=== PATIENT | female | born 1990 | race Caucasian/White ===

== ENCOUNTER 2017-01-05 18:33 | Inpatient (IN) | payer MEDICAID ==
[~2017-01-05] VITALS: Ht 165.1 cm; Wt 94.3 kg
[~2017-01-05 18:33] MED LIST: EFFEXOR-XR150 MG PO; FOLATE1 MG PO; MOTRIN400 MG PO; PRENATAL VITAMI1 T10 PO; TYLENOL650 MG RC; VITAMIN B12100 MC1 PO; VITAMIN C500 M8 PO
[2017-01-05 18:36] VITALS: BP 130/94
--- NOTE | 2017-01-05 20:09 | NUR ---
PT TAKEN TO XRAY
--- NOTE | 2017-01-05 20:23 | NUR ---
PT RETURN FROM XRAY
--- NOTE | 2017-01-05 21:07 | NUR ---
PT TAKEN TO BED 6
--- NOTE | 2017-01-05 21:10 | NUR ---
Dr. Arthur evaluating patient at bedside.
[2017-01-05] MEDS ORDERED: NACL 0.9% 1,000 ML IV ONE (21:25)
[2017-01-05] MEDS ORDERED: ONDANSETRON 4 MG/2 ML VIAL IVP ONE (21:25)
[2017-01-05] MEDS ORDERED: LORazepam 2 MG/ML VIAL IVP ONE (21:25)
--- NOTE | 2017-01-05 21:45 | NUR ---
26Y/F PATIENT PRESENTS TO ED WITH C/O CHEST PAIN SINCE 3AM LAST NIGYT. AAO X4, AMBULATORY WITH STEADY GAIT; LUNGS CLEAR BL; HR EVEN AND REGULAR; PT DENIES ANY FEVER, SOB, OR COUGH AT THIS TIME; C/O CHEST PAIN, PATIENT STATES PAIN OF 9/10 AT THIS TIME; VSS; PATIENT POSITIONED FOR COMFORT; HOB ELEVATED; BEDRAILS UP X2; BED DOWN. ER MD MADE AWARE OF PT STATUS.
--- NOTE | 2017-01-05 22:39 | NUR ---
Ultrasound at bedside.
[2017-01-05] MEDS ORDERED: MORPHINE SULFATE 2 MG/ML SYR IVP ONE (23:25)
[2017-01-05] MEDS ORDERED: ACETAMINOPHEN 325 MG TAB PO PRN (23:40)
[2017-01-05] MEDS ORDERED: DOCUSATE SODIUM 100 MG GELCAP PO PRN (23:40)
[2017-01-05] MEDS ORDERED: MORPHINE SULFATE 2 MG/ML SYR IVP PRN (23:40)
[2017-01-05] MEDS ORDERED: CHLORHEXADINE GLUC 2% CLOTH TP SCH (23:45)
[2017-01-05] MEDS ORDERED: KETOROLAC 30 MG/ML VIAL IVP ONE (23:50)
[2017-01-06 00:05] VITALS: BP 106/57
--- NOTE | 2017-01-06 00:05 | NUR ---
ADMITTED A 26F FROM ER. CAME BY WHEELCHAIR DUE TO ABDOMINAL /EPIGASTRIC PAIN SINCE YESTERDAY. STARTED FEW DAYS A GO BUT THE WORST PAIN WAS YESTERDAY. AWAKE,ALERT AND ORIENTED X4. MED SURG PT. WITH HL ON THE RT AC #20. CLEAR AND PATENT. SKIN INTACT. AMBULATORY. SHE SAID SHE HAS HX: OF CHRONIC PAIN . PLAN OF CARE DISCUSSED AND VERBALIZED UNDERSTANDING. ORIENTED TO HOSPITAL ROUTINES. CALL LIGHT PLACED WITHIN EASY REACH. WILL FOLLOW UP ADMIT ORDERS.
--- NOTE | 2017-01-06 00:05 | NUR ---
Patient will be admitted to care of [facility]. Admited to MED-SURG. Will go to room 108B. Belongings list completed. Report to ERICKSON LIN.
--- NOTE | 2017-01-06 00:10 | NUR ---
TALKED TO TO CONFIRM STATUS OF ADMISSION.HE SAID IT IS OK TO ADMIT MED-SURGE.SO ADMITTED PT MED-SURG PT.NEEDS ORDER.
--- NOTE | 2017-01-06 00:20 | NUR ---
INSTRUCTED PT THE NPO EXCEPT MEDS DIET ORDER. VERBALIZED UNDERSTANDING.
[2017-01-06] MEDS ORDERED: XANAX2 M1 PO (01:15)
--- NOTE | 2017-01-06 01:30 | NUR ---
APPLIED TO BLE SCD MACHINE. PT AWARE OF BENEFITS FROM THE MACHINE.
--- NOTE | 2017-01-06 02:12 | NUR ---
PAGED DR. AJ,CALLED BACK . MADE AWARE THE NEED FOR MRSA NARES ORDER .
[2017-01-06] MEDS: NACL 0.9% 1,000 ML IV SCH ×2 (03:47→21:38)
--- NOTE | 2017-01-06 06:30 | NUR ---
ABLE TO SLEEP DURING THE NIGHT. NO C/O ANY PAIN NOTED.
--- NOTE | 2017-01-06 07:35 | NUR ---
ENDORSED PT IN STABLE CONDITION TO AM NURSE.
--- NOTE | 2017-01-06 07:36 | NUR ---
RECEIVED SBAR REPORT AT PT BEDSIDE FROM NIGHT RN. PT RESTING IN BED. AAOX4. NO S/S OF ACUTE DISTRESS. C/O ABDOMINAL PAIN, WILL MEDICATE ORDERED. IV SITE PATENT AND INTACT. CALL LIGHT WITHIN REACH. BED IN LOWEST POSITION.
[2017-01-06 08:00] VITALS: BP_SYST 101; BP_SYST 149; BP_DIAS 59; BP_DIAS 89
[2017-01-06] MEDS: HYDROcodone/APAP 5/325 MG 1 TAB TAB PO PRN ×3 (08:46→20:59)
[2017-01-06] MEDS: ALPRAZolam 0.5 MG TAB PO PRN ×2 (08:47→20:59)
[2017-01-06] MEDS: FOLIC ACID 1 MG TAB PO SCH (08:50)
--- NOTE | 2017-01-06 08:55 | NUR ---
ROUNDED WITH PATIENT. PATIENT TO HAVE ERCP.
[2017-01-06] MEDS ORDERED: MUPIROCIN 2% OINT 22 GM TUBE TP SCH (09:00)
[2017-01-06] MEDS ORDERED: CHLORHEXADINE GLUC 2% CLOTH TP SCH ×2 (09:00)
[2017-01-06] MEDS ORDERED: VENLAFAXINE XR 75 MG CAPER PO SCH (09:00)
--- NOTE | 2017-01-06 09:10 | NUR ---
PATIENT HAS BEEN SCREENED AND CATEGORIZED MODERATE NUTRITION RISK. PATIENT WILL BE SEEN WITHIN 3-5 DAYS OF ADMISSION. 01/08/17-01/10/[address]
[2017-01-06] MEDS: HYDROmorphone 1 MG/ML AMP IVP PRN ×3 (11:39→23:09)
--- NOTE | 2017-01-06 12:28 | NUR ---
CM NOTE INITIAL REVIEW SENT TO [facility] [place] FAX# [phone] PH# [phone]
--- NOTE | 2017-01-06 14:00 | NUR ---
PT RESTING IN BED. NO S/S OF ACUTE DISTRESS. ALL NEEDS MET.
[2017-01-06 16:00] VITALS: BP 109/71
--- NOTE | 2017-01-06 17:40 | NUR ---
PT C/O PAIN WITHOUT RELIEF FROM PO MEDS. PT MEDICATED ORDERED. WILL CONTINUE TO MONITOR. NO S/S OF ACUTE DISTRESS.
--- NOTE | 2017-01-06 18:55 | NUR ---
PATIENT BEING SEEN BY DR. VÁSQUEZ AT PT BEDSIDE.
--- NOTE | 2017-01-06 19:10 | NUR ---
ENDORSED PLAN OF CARE TO NIGHT RN MODESTA AT PT BEDSIDE. PT RESTING IN BED. NO S/S OF ACUTE DISTRESS.
--- NOTE | 2017-01-06 19:15 | NUR ---
RECEIVED PT FROM LESIA ROBERTS RN PT IS AAOX4 AMBULATORY WITH DX ACUTE CHOLECYSTITIS DR VÁSQUEZ IS HERE AND SEE THE PT, NOT DISTRESS AT THIS TIME INITIAL ASSESSMENT DONE
[2017-01-06 20:00] VITALS: BP 110/64
--- NOTE | 2017-01-06 21:20 | NUR ---
DR ESPINO IS HERE AND SEE THE PT AND ORDER TO FOLLOW. PT WILL HAVE ERCP IN AM
--- NOTE | 2017-01-07 00:17 | NUR ---
AFTER PAIN MEDIC GIVEN PT SLEEP QUITE, NOT DISTRESS NOTED
[2017-01-07 04:00] VITALS: BP 144/57
--- NOTE | 2017-01-07 04:00 | NUR ---
PT SLEEPING WELL DENIES ANY PAIN AT THIS TIME IV ON RT AC INFUSING WELL
[2017-01-07] MEDS: HYDROmorphone 1 MG/ML AMP IVP PRN ×4 (04:56→22:02)
--- NOTE | 2017-01-07 06:00 | NUR ---
AFTER PAIN MEDIC GIVEN PT SLEEPING WELL NOT DISTRESS NOTED WAITIG TO PICK HER UP FOR ERCP CONSENT READY TICKET TO RIDE AND SURGICAL CHECK LIST READY
--- NOTE | 2017-01-07 07:30 | NUR ---
PATIENT TAKEN OFF FLOOR FOR ERCP PROCEDURE. NO S/S OF ACUTE DISTRESS NOTED.
[2017-01-07] MEDS ORDERED: fentaNYL 0.05 MG/ML VIAL ONE (07:41)
[2017-01-07] MEDS ORDERED: MIDAZOLAM 2 MG/2 ML VIAL ONE (07:41)
[2017-01-07] MEDS ORDERED: GLUCAGON 1 MG VIAL ONE (07:42)
[2017-01-07] MEDS ORDERED: ONDANSETRON 4 MG/2 ML VIAL ONE (07:42)
[2017-01-07] MEDS ORDERED: PROPOFOL 200 MG/20 ML VIAL IV ONE (07:42)
[2017-01-07] MEDS ORDERED: KETOROLAC 30 MG/ML VIAL IVP PRN (08:40)
[2017-01-07 09:00] VITALS: BP 109/68
[2017-01-07] MEDS: FOLIC ACID 1 MG TAB PO SCH (09:00)
--- NOTE | 2017-01-07 09:00 | NUR ---
PATIENT RETURNED FROM ERCP PROCEDURE. NO S/S OF ACUTE DISTRESS. VITAL SIGNS STABLE. C/O PAIN, DR. PLASENCIA MADE AWARE OF ADJUSTMENT OF ORDERS. WILL MEDICATE ORDERED.
--- NOTE | 2017-01-07 09:05 | NUR ---
SPOKE WITH DR. VÁSQUEZ REGARDING PATIENT RETURN FROM ERCP AND PROCEDURE. PATIENT TO BE GIVEN FOOD AND NPO MIDNIGHT FOR PROCEDURE TOMORROW.
[2017-01-07] MEDS: NACL 0.9% 1,000 ML IV SCH ×2 (09:48→18:23)
[2017-01-07] MEDS: ALPRAZolam 0.5 MG TAB PO PRN ×2 (09:56→20:53)
[2017-01-07] MEDS: VENLAFAXINE XR 75 MG CAPER PO SCH ×2 (10:21→20:45)
--- NOTE | 2017-01-07 10:21 | NUR ---
CM NOTE CONCURRENT REVIEW SENT TO [facility] [place] FAX# [phone] PH# [phone]. INITIAL AND CONCURRENT REVIEW SENT TO [facility] FAX# [phone] PH# [phone] TRACKING# [id number]
--- NOTE | 2017-01-07 12:20 | NUR ---
PT ATE FOOD FROM HOME. BOYFRIEND AT BEDSIDE. PT MADE AWARE OF UPCOMING PROCEDURES AND TESTS. PT TOLERATED LUNCH, DENIES NAUSEA. NO S/S OF ACUTE DISTRESS.
[2017-01-07] MEDS: HYDROcodone/APAP 5/325 MG 1 TAB TAB PO PRN ×2 (13:11→18:13)
--- NOTE | 2017-01-07 14:50 | NUR ---
PT RESTING IN BED. NO S/S OF ACUTE DISTRESS. WILL CONTINUE TO MONITOR.
[2017-01-07 16:00] VITALS: BP 128/70
--- NOTE | 2017-01-07 16:10 | NUR ---
PT C/O ABDOMINAL DISCOMFORT. MEDICATED ORDERED. NO S/S OF ACUTE DISTRESS NOTED.
--- NOTE | 2017-01-07 19:18 | NUR ---
SBAR REPORT GIVEN TO DONNIE HALE AT PT BEDSIDE. NO S/S OF ACUTE DISTRESS. ALL NEEDS MET DURING SHIFT.
--- NOTE | 2017-01-07 19:19 | NUR ---
PATIENT IS CURRENTLY SITTING UP IN BED AWAKE ALERT ORIENTED PATIENT DENIES PAIN AT THIS TIME ,SHE IS CURRENTLY WATCHING TV,NEEDS MET.CALL LIGHT WITHIN REACH WILL CONTINUE TO MONITOR.
--- NOTE | 2017-01-07 20:00 | NUR ---
Patient's Plan of Care was discussed and reviewed with CONTINUOUS IMPROVEMENT COACH: GEOFFREY CHANCE
[2017-01-07 20:15] VITALS: BP 124/86
--- NOTE | 2017-01-07 20:45 | NUR ---
EDUCATION GIVEN ON HER ROUTINE MEDICATION GIVEN MANDO.PATIENT VERBALIZES UNDERSTANDING AND TOOK HER MEDICATION.
[2017-01-07] MEDS ORDERED: VENLAFAXINE XR 75 MG CAPER PO SCH (21:00)
--- NOTE | 2017-01-07 23:15 | NUR ---
PATIENT IS CURRENTLY SLEEPING IN BED ON AND OFF WATCHING TV I ASKED HER IF SHE IS DOING GOOD. PATIENT SAID SHE IS OK RIGHT NOW.
--- NOTE | 2017-01-08 00:25 | NUR ---
PATIENT IS CURRENTLY RESTING IN BED.CALL LIGHT WITHIN REACH.
--- NOTE | 2017-01-08 02:37 | NUR ---
PATIENT IS CURRENTLY SLEEPING.IVF INFUSING WELL IV SITE PATENT.NO PAIN OR DISCOMFORT NOTED WILL CONTINUE TO MONITOR.
[2017-01-08] MEDS: HYDROcodone/APAP 5/325 MG 1 TAB TAB PO PRN ×3 (02:58→17:48)
[2017-01-08] MEDS: NACL 0.9% 1,000 ML IV SCH (02:58)
--- NOTE | 2017-01-08 04:46 | NUR ---
PATIENT IS CURRENTLY RESTING IN BED IVF INFUSING WELL IV SITE PATENT
[2017-01-08] MEDS: HYDROmorphone 1 MG/ML AMP IVP PRN ×2 (05:09→16:15)
[2017-01-08 05:35] VITALS: BP 100/56
--- NOTE | 2017-01-08 06:31 | NUR ---
PATIENT IS CURRENTLY STABLE RESTING IN BED WILL CONTINUE TO MONITOR.
--- NOTE | 2017-01-08 06:40 | NUR ---
PATIENT IS AWARE THAT SHE WILL GO FOR PROCEDURE AT 0830 THIS MORNING AND CONTINUES TO BE NPO.
--- NOTE | 2017-01-08 07:30 | NUR ---
PATIENT STABLE REPORT ENDORSED AT BEDSIDE TO RN OSMELN.
--- NOTE | 2017-01-08 07:35 | NUR ---
RECEIVED SBAR REPORT, PATIENT NPO FOR PROCEDURE TODAY.
[2017-01-08 08:00] VITALS: BP 118/67
[2017-01-08] MEDS ORDERED: BUPIVACAINE-MPF/EPI 0.5% 30 ML VIAL INJ ONE (08:10)
[2017-01-08] MEDS ORDERED: ONDANSETRON 4 MG/2 ML VIAL IVP ONE (08:20)
[2017-01-08] MEDS ORDERED: DESFLURANE 240 ML BTL INH ONE (08:20)
[2017-01-08] MEDS ORDERED: GLYCOPYRROLATE 0.2 MG/ML VIAL IV ONE (08:20)
[2017-01-08] MEDS ORDERED: DEXAMETHASONE 4 MG/ML VIAL IVP ONE (08:20)
[2017-01-08] MEDS ORDERED: NEOSTIGMINE 1:1000 10 MG/10 ML VIAL IM ONE (08:20)
[2017-01-08] MEDS ORDERED: SUCCINYLCHOLINE CHLORIDE 200 MG/10 ML VIAL IV ONE (08:20)
[2017-01-08] MEDS ORDERED: KETOROLAC 60 MG/2 ML VIAL IM ONE (08:20)
[2017-01-08] MEDS ORDERED: ROCURONIUM 50 MG/5 ML VIAL IV ONE (08:20)
[2017-01-08] MEDS ORDERED: PROPOFOL 200 MG/20 ML VIAL IV ONE (08:20)
--- NOTE | 2017-01-08 08:30 | NUR ---
PATIENT WHEELED TO SURGERY IN A STABLE CONDITION ACCOMAPNIED BY OR, RN
[2017-01-08] MEDS ORDERED: ceFAZolin 1,000 MG VIAL ONE (08:42)
[2017-01-08] MEDS ORDERED: LEVOFLOXACIN 500 MG/D5W PREMIX 100 ML IV ONE (08:45)
[2017-01-08] MEDS ORDERED: MIDAZOLAM 2 MG/2 ML VIAL ONE (08:53)
[2017-01-08] MEDS ORDERED: fentaNYL 0.05 MG/ML VIAL ONE (08:53)
[2017-01-08] MEDS ORDERED: MEPERIDINE 50 MG/ML SYR ONE (08:53)
[2017-01-08] MEDS: FOLIC ACID 1 MG TAB PO SCH (09:00)
[2017-01-08] MEDS ORDERED: METOCLOPRAMIDE 10 MG/2 ML INJ VIAL IVP PRN (09:45)
[2017-01-08] MEDS ORDERED: MIDAZOLAM 2 MG/2 ML VIAL IVP ONE (09:45)
[2017-01-08] MEDS ORDERED: MEPERIDINE 25 MG/ML SYR IVP PRN ×2 (09:45)
[2017-01-08] MEDS ORDERED: MEPERIDINE 25 MG/ML SYR ONE (11:05)
[2017-01-08 11:30] VITALS: BP 116/80
--- NOTE | 2017-01-08 11:30 | NUR ---
PATIENT BACK FROM SURGERY, VITAL SIGN STABLE. INCENTIVE SPIROMETER GIVEN AND INSTRUCTION WELL, PATIENT VERBALIZED UNDERSTANDING AND DID RETURN DEMONSTRATION.
[2017-01-08 13:01] VITALS: BP 118/66
[2017-01-08] MEDS: DEXT 5% / NACL 0.45% 1,000 ML IV SCH ×3 (13:12→23:36)
--- NOTE | 2017-01-08 15:50 | NUR ---
PATIENT AMBULATED TO THE HALLWAY WITH RN, TOLERATED WELL.
[2017-01-08 16:00] VITALS: BP 123/66
[2017-01-08] MEDS ORDERED: MAGNESIUM OXIDE 400 MG TAB PO SCH (16:30)
--- NOTE | 2017-01-08 17:30 | NUR ---
PATIENT AMBULATED TO THE BATHROOM WITH RN, TOLERATED.
--- NOTE | 2017-01-08 18:38 | NUR ---
PATIENT TOLERATING CLEAR LIQUID, DENIES ANY NAUSEA/VOMITING.
--- NOTE | 2017-01-08 19:10 | NUR ---
PATIENT IS CURRENTLY RESTING IN BED DENIES PAIN AT THIS TIME,SURGICAL INCISIONS TO ABD X4 CURRENTLY CLEAN AND DRY AND INTACT.IVF INFUSING WELL IV SITE PATIENT.PATIENT NEEDS CONTINUE TO BE MET.PATIENT ABLE TO VERBALIZE NEEDS.
--- NOTE | 2017-01-08 19:39 | NUR ---
Patient's Plan of Care was discussed and reviewed with TUBE LASER OPERATOR: JESSE
--- NOTE | 2017-01-08 19:57 | NUR ---
I MADE ROUNDS PATIENT WANTS TO USE THE BEDPAN.I EDUCATED THE PATIENT ON THE IMPORTANCE TO AMBULATE AND KAM GIO AND MYSELF OFFERED OUR HELP I EXPLAINED THAT SHE CAN TAKE HER TIME TO AMBULATE TO THE BATHROOM.PATIENT REFUSED TO AMBULATE TO THE BATHROOM AND CONTINUES TO INSIST AND STATES,"I WANT TO USE THE BEDPAN." PATIENT WAS GIVEN THE BEDPAN FOR NOW. PATIENT IS ALSO ASKING FOR PAIN MEDICATION PT STATES,"MY PAIN IS SEVERE."PATIENT DEMANDS THAT I CALL THE MD AND TRY TO GET MORE PAIN MEDICATION FOR HER PAIN. I EXPLAINED TO THE PATIENT THAT SHE HAS PAIN MEDICATION ORDERED ALREADY FOR HER PAIN AND ITS NOT TIME YET FOR EITHER NORCO OR DILAUDID PATIENT STATES,"I KNOW BUT I NEED MORE PAIN MEDICATION NOW." WILL WEI MARTINEZ.
[2017-01-08 20:09] VITALS: BP 124/74
--- NOTE | 2017-01-08 20:15 | NUR ---
CALLED BACK AND WAS INFORMED PATIENT IS HAVING SEVERE PAIN AND ITS NOT TIME FOR EITHER ADRIAN OR GAY MARTINEZ SAID HE WILL PUT ORDERS IN.
[2017-01-08] MEDS: VENLAFAXINE XR 75 MG CAPER PO SCH (20:44)
[2017-01-08] MEDS: ALPRAZolam 0.5 MG TAB PO PRN (20:44)
--- NOTE | 2017-01-08 20:54 | NUR ---
ORDERS FOR PAIN MEDS STILL NOT ENTERED YET WILL PAGE MD AGAIN.
--- NOTE | 2017-01-08 21:01 | NUR ---
MD HOFFMAN CALLED BACK AND I INFORMED HIM THAT I STILL HAVE NO ORDER FOR PATIENT PAIN MED HE SAID HE WOULD ORDER. SAID HE WILL ORDER.
--- NOTE | 2017-01-08 21:38 | NUR ---
ORDER FOR PAIN MEDS IN I CALLED PHARMACY TO VERIFY THE MEDS PATIENT NEEDS HER PAIN MEDICATION.
[2017-01-08] MEDS: MORPHINE SULFATE 2 MG/ML SYR IVP PRN (21:48)
--- NOTE | 2017-01-08 21:48 | NUR ---
PATIENT MEDICATED BY ERICKSON COLE FOR PAIN WITH MORPHINE IV.
--- NOTE | 2017-01-08 22:50 | NUR ---
PATIENT WAS ABLE TO WALK TO THE BATHROOM WELL. KAM POWERS AND MYSELF CHANGED HER COMPLETE BED AND BED LINEN AND ASSISTED THE PATIENT BACK TO BED.IVF INFUSING WELL IV SITE PATENT.WILL CONTINUE TO MONITOR.CALL LIGHT WITHIN REACH.
[2017-01-09] VITALS: BP 114/83
--- NOTE | 2017-01-09 00:16 | NUR ---
PATIENT COMPLAINING OF PAIN TO IV SITE IV SITE WAS FLUSHED SOME RESISTANCE NOTED AND PATIENT COMPLAINS OF PAIN.IV WAS DISCONTINUED AND A NEW IV ACCESS TO RT HAND G#22 WAS OBTAINED.PATIENT TOLERATED ACTIVITY WELL WILL CONTINUE TO MONITOR.IVF INFUSING WELL.
[2017-01-09] MEDS: HYDROcodone/APAP 5/325 MG 1 TAB TAB PO PRN (00:33)
--- NOTE | 2017-01-09 03:10 | NUR ---
PATIENT IS CURRENTLY SLEEPING IN BED,IVF INFUSING WELL IV SITE PATENT WILL CONTINUE TO MONITOR.
[2017-01-09] MEDS: MORPHINE SULFATE 2 MG/ML SYR IVP PRN (05:58)
--- NOTE | 2017-01-09 06:05 | NUR ---
PATIENT COMPLAINS OF PAIN AND ERICKSON COLE WENT TO MEDICATE THE PATIENT AND SHE REFUSED THE MORPHINE.MD CALLED AND LEFT A MESSAGE WILL WAIT FOR A CALL BACK.
--- NOTE | 2017-01-09 06:34 | NUR ---
NO CALL BACK YET SECOND ATTEMPT MD WAS CALLED AND LEFT A MESSAGE.WILL WAIT FOR A CALL BACK.
--- NOTE | 2017-01-09 06:56 | NUR ---
MD ANAYA INFORMED THIS MORNING THAT PATIENT REFUSED HER MORPHINE AND IS DEMANDING TO HAVE DILAUDID AND I OFFERED THEM MORPHINE AGAIN AND SHE REFUSED IT.MD ANAYA SAID HE WILL COME AND TALK TO HER AND HE WILL MAKE ROUNDS SHORTLY.
--- NOTE | 2017-01-09 07:09 | NUR ---
MD ANAYA IS HERE MAKING ROUNDS SAID HE WILL COME AND TALK TO THE PATIENT.
--- NOTE | 2017-01-09 07:25 | NUR ---
RECEIVED PT IN BED. AWAKE, ALERT ORIENTEDX4. NO SOB. NO ACUTE SIGNS AND SYMPTOMS OF DISTRESS NOTED. ABDOMINAL INCISION NOTED, OPEN TO AIR. ENCOURAGE PT TO AMBULATE. PT VERBALIZED SHE AMBULATES. SAFETY PRECAUTION IN PLACE. CALL LIGHT WITHIN REACH.
[2017-01-09 08:00] VITALS: BP 118/74
--- NOTE | 2017-01-09 08:45 | NUR ---
PT COMPLAINING OF SEVERE PAIN BUT DOES NOT WANT TO TAKE MORPHINE PRN AND JUST WANT TO SPEAK WITH THE DOCTOR. DR ANAYA CAME TO SEE PT WITH ORDERS MADE AND CARRIED OUT.
[2017-01-09] MEDS ORDERED: HYDROmorphone 1 MG/ML AMP IVP PRN ×2 (09:15→20:00)
[2017-01-09] MEDS ORDERED: HYDROcodone/APAP 10/325 MG 1 TAB TAB PO PRN (09:15)
[2017-01-09] MEDS: FOLIC ACID 1 MG TAB PO SCH (09:39)
--- NOTE | 2017-01-09 11:21 | NUR ---
ABDOMINAL SURGICAL SITE ASSESSMENT DONE. NO ACTIVE BLEEDING OR DISCHARGE NOTED. DARK REDISH TO BROWN SCAB NOTED ON SURGICAL SITE AREA NOTED. KEPT CLEAN, AND DRY, OPEN TO AIR. PT AMBULATED GOING TO THE BATHROOM WITH MINIMAL TO NO ASSISTANCE.
[2017-01-09] MEDS: ONDANSETRON 4 MG/2 ML VIAL IVP PRN ×2 (11:52→16:46)
[2017-01-09 12:00] VITALS: BP 127/78
[2017-01-09] MEDS: DEXT 5% / NACL 0.45% 1,000 ML IV SCH (14:45)
[2017-01-09 16:00] VITALS: BP 130/70
--- NOTE | 2017-01-09 16:20 | NUR ---
PT VERBALIZED SHE IN IN PAIN OF 10/10 AND WOULD WANT TO RECEIVE DILAUDID. PAIN ASSESSMENT DONE, NO FACIAL GRIMACE NOTED, GUARDING OF ABDOMINAL SITE NOTED. DR. ANAYA MADE AWARE WITH ORDERS MADE AND CARRIED OUT.
[2017-01-09] MEDS: oxyCODONE/APAP 5/325 MG 1 TAB TAB PO PRN ×2 (16:28→23:58)
--- NOTE | 2017-01-09 17:00 | NUR ---
ENCOURAGED PT TO AMBULATE. PT AMBULATED GOING TO THE BATHROOM. PT BURPED AND PASSED GAS VERBALIZED BY PT.
--- NOTE | 2017-01-09 18:00 | NUR ---
PT COMPLAINED OF PAIN OF ABDOMEN. BUT VERBALIZED THAT PREVIOUSLY GIVEN PERCOCET HELPING HER BUT NOT ENOUGH. AND PT WANTS TO HAVE DILAUDID. ASSESSED PT. DR. ANAYA MADE AWARE WITH ORDERS MADE AND CARRIED OUT. PT MADE AWARE THAT SHE WILL GET HER DILAUDID AT 2000 PER MD ORDER.
--- NOTE | 2017-01-09 19:30 | NUR ---
PT KEPT CLEAN, DRY AND COMFORTABLE, NEEDS ATTENDED. ENDORSED TO NEXT SHIFT FOR CONTINUITY OF CARE. NO SOB NOTED. FUEL TRUCK DRIVER NURSE MADE AWARE OF DILAUDID X1 ORDER AT 1999. PT VERBALIZED UNDERSTANDING OF DILAUDID ORDER. PT ON STABLE CONDITION.
--- NOTE | 2017-01-09 19:35 | NUR ---
PATIENT IS RESTING COMFORTABLY IN BED DENIES PAIN AT THIS TIME,IVF INFUSING WELL IV SITE PATENT.ABDOMINAL INCISION TO ABDOMEN X4 DRY AND INTACT.PATIENT VERBALIZES FEELING ANXIETY BECAUSE SHE HASN'T SEEN HER DOG.PATIENT NEEDS MET.ENCOURAGED TO CONTINUE TO AMBULATE.PATIENT ENCOURAGED TO DO BREATHING EXERCISES.PATIENT VERBALIZES UNDERSTANDING.CALL LIGHT WITHIN REACH.
[2017-01-09 20:00] VITALS: BP 116/71
[2017-01-09 20:07] VITALS: BP 113/77
[2017-01-09] MEDS: VENLAFAXINE XR 75 MG CAPER PO SCH (21:38)
[2017-01-09] MEDS: ALPRAZolam 0.5 MG TAB PO PRN (21:39)
--- NOTE | 2017-01-09 22:10 | NUR ---
Patient's Plan of Care was discussed and reviewed with RATING CLERK: GEOFFREY CHANCE
--- NOTE | 2017-01-09 23:16 | NUR ---
MD HOFFMAN CALL BACK AND I INFORMED HIM THAT PATIENT HAS BEEN TOLERATING FULL LIQUID DIET AND INFORMED HIM THAT PATIENT WANTS TO EAT PUDDING SO I ASKED MD IF PATIENT CAN HAVE REGULAR DIET HE SAID OK.I ALSO ASKED IF SHE CAN HAVE HER IVF CHANGED TO SALINE LOCK PATIENT IS NOT GETTING ANTIBIOTICS AND IS DRINKING PLENTY OF FLUIDS. SAID YES. MD HOFFMAN SAID HE WILL PUT THE ORDERS.
--- NOTE | 2017-01-09 23:20 | NUR ---
PATIENT WAS GIVEN A CHOCOLATE PUDDING AND CONTINUES TO DRINK PLENTY OF WATER AND AMBULATES.
--- NOTE | 2017-01-10 01:03 | NUR ---
PATIENT SLEEPING COMFORTABLY IN BED IN NO DISTRESS WILL CONTINUE TO MONITOR.
[2017-01-10] MEDS: DEXT 5% / NACL 0.45% 1,000 ML IV SCH ×2 (02:25→12:25)
--- NOTE | 2017-01-10 02:25 | NUR ---
IVF BAG NOT HUNG ORDERED FOR THE PATIENT SALINE LOCK.
--- NOTE | 2017-01-10 03:30 | NUR ---
PATIENT SLEEPING IN BED NO PAIN OR DISCOMFORT.WILL CONTINUE TO MONITOR.
[2017-01-10] MEDS ORDERED: MAG SULF 2000 MG/WATER PREMIX 50 ML IV ONE (07:00)
--- NOTE | 2017-01-10 07:33 | NUR ---
PATIENT STABLE SLEEPING REPORT ENDORSED TO ERICKSON HERNANDEZ.
--- NOTE | 2017-01-10 07:34 | NUR ---
RECEIVED CARE OF PT FROM INFORMATICA MDM ARCHITECT NURSE AT BEDSIDE. PT IS ALERT AWAKE AND ORIENTED. VS WNL. PT HAS R HAND IV 22 G SL. PT C/O PAIN, WILL CHECK EMAR AND ADMINISTER PAIN MED. INTRODUCED OURSELVES AND UPDATED THE BOARD. EXPLAINED TO PT PLAN OF CARE FOR TODAY. WILL HANG MAG RIDER DUE TO MG LEVEL OF 1.7. PT HAS 4 ABD INCISION S/P [place], DRESSING INTACT. PT HAS NOT HAD BM SINCE [place], PT IS PASSING GAS AND WALKING OK. CALL LIGHT WITHIN REACH. WILL CONTINUE TO MONITOR.
[2017-01-10 08:00] VITALS: BP 118/69
[2017-01-10] MEDS: FOLIC ACID 1 MG TAB PO SCH (09:02)
[2017-01-10] MEDS: oxyCODONE/APAP 5/325 MG 1 TAB TAB PO PRN ×2 (09:03→13:05)
--- NOTE | 2017-01-10 09:05 | NUR ---
ADMINISTERED MORNING MED AND PERCOCET FOR PAIN. PT TOLERATED WELL. WILL CONTINUE TO MONITOR.
--- NOTE | 2017-01-10 10:19 | NUR ---
CM NOTE CONCURRENT REVIEW SENT TO [employer] FAX# [phone] PH# [phone] AND TO [facility] FAX# [phone] PH# [phone] TRACKING# [id number]
--- NOTE | 2017-01-10 10:55 | NUR ---
PT SAT UP AND ATE BREAKFAST IN BED. NO DISTRESS NOTED. CALL LIGHT WITHIN REACH. WILL CONTINUE TO MONITOR.
--- NOTE | 2017-01-10 11:10 | NUR ---
PT REQUESTED TO SPEAK TO REGARDING PAIN MANAGEMENT. WILL COMMUNICATE WITH
--- NOTE | 2017-01-10 11:15 | NUR ---
SPOKE TO ABOUT PT'S REQUEST FOR DISCUSSION ON PAIN MANAGEMENT. STATED HE WILL ORDER A MUSCLE RELAXANT AND ASK PT TO AMBULATE.
[2017-01-10] MEDS ORDERED: METHOCARBAMOL 500 MG TAB PO PRN (12:05)
--- NOTE | 2017-01-10 13:00 | NUR ---
CLEANED PT'S SURGICAL WOUNDS WHICH HAD OLD BLOOD, NO NEW DRAINAGE, LEAVE SITES CONTRACTS SPECIALIST. PT TOLERATED WELL. TOOK PICTURE OF WOUNDS TO KEEP IN PT'S RECORD.
[2017-01-10] MEDS: ALPRAZolam 0.5 MG TAB PO PRN (13:05)
--- NOTE | 2017-01-10 14:00 | NUR ---
PT STATED SHE IS HAVING NUMBING AND TINGLING ON UPPER BACK AND NEEDED A MUSCLE RELAXANT. PT REFUSED THE METHOCARBAMOL THE DR PRESCRIBED, SHE STATED THE MEDICATION MAKES HER WEIRD. WILL TALK TO DR REGARDING PT'S REQUEST.
--- NOTE | 2017-01-10 14:05 | NUR ---
TALKED TO DR GONZALEZ REGARDING PT'S REQUEST FOR MUSCLE RELAXANT. STATED PT IS GOING HOME TODAY AND NEEDS TO F/U WITH PCP.
[2017-01-10 16:00] VITALS: BP 112/76
[2017-01-10] MEDS ORDERED: COLACE100 M1 PO (16:24)
[2017-01-10] MEDS ORDERED: ZOFRAN4 M1 PO (16:24)
[2017-01-10] MEDS ORDERED: METHOCARBAMOL500 M1 PO (16:24)
[2017-01-10] MEDS ORDERED: ACETAMINOPHEN-O1 TAB PO (16:24)
[2017-01-10] MEDS ORDERED: EFFEXOR-XR150 MG PO (16:24)
--- NOTE | 2017-01-10 16:48 | NUR ---
PT GIVEN DISCHARGE INSTRUCTION AT BEDSIDE. ANSWERED ALL QUESTIONS. PT VERBALIZED UNDERSTANDING. SIGNED APPROPRIATE PAPERWORK. REMOVED ALL ID BANDS. REMOVED IV, CANNULA INTACT. NO BLEEDING NOTED. PT WILL GET INTO HER PERSONAL CLOTHES, GATHER UP HER PERSONAL BELONGINGS. WILL WAIT FOR HER RIDE. PT WILL LET US KNOW WHEN HER SPOUSE GETS HERE SO WE CAN WHEEL CHAIR HER OUT. EDUCATED PT THE IMPORTANCE OF FOLLOWING UP WITH ER PCP AND SURGEON, IMPORTANCE OF DRINKING PLENTY OF WATER AND AMBULATING WHILE TAKING NARCOTICS FOR PAIN. PT VERBALIZED UNDERSTANDING.
--- NOTE | 2017-01-10 17:55 | NUR ---
DR. VÁSQUEZ CHECKED PT'S INCISION AT BEDSIDE. PT IN STABLE CONDITION. WILL CONTINUE TO MONITOR.
--- NOTE | 2017-01-10 19:25 | NUR ---
ENDORSED PT TO RAISE DRILL OPERATOR NURSE AT BEDSIDE. PT IN STABLE CONDITION. Addendum: 01/10/17 at 1940 by Anita Uriostegui RN WRONG PT
--- NOTE | 2017-01-10 19:40 | NUR ---
WHEELED PT OUT. PT IN STABLE CONDITION. AT HER SIDE.
[2017-01-31] MEDS ORDERED: PERCOCET 325 MG1 TA4 PO (08:10)
[2017-01-31] MEDS ORDERED: COLACE100 M1 PO (11:27)
== END 2017-01-10 18:40 | disposition home or self-care (01) | DRG 263 ==
LOC: MED 18:33 → MTU 23:41
PROVIDERS: ADMIT Family Medicine; ATTEND Family Medicine
PROC: 0FC98ZZ Extirpation of Matter from Common Bile Duct, Via Natural or Artificial Opening Endoscopic (ICD-10-PCS; 2017-01-07)
PROC: 0F7D8DZ Dilation of Pancreatic Duct with Intraluminal Device, Via Natural or Artificial Opening Endoscopic (ICD-10-PCS; principal; 2017-01-07 07:30)
PROC: 0FT44ZZ Resection of Gallbladder, Percutaneous Endoscopic Approach (ICD-10-PCS; 2017-01-08)
DX: K80.64 Calculus of gallbladder and bile duct with chronic cholecystitis without obstruction (principal); K85.90 Acute pancreatitis without necrosis or infection, unspecified; E83.42 Hypomagnesemia; E66.01 Morbid (severe) obesity due to excess calories; E78.5 Hyperlipidemia, unspecified; F41.9 Anxiety disorder, unspecified; F31.9 Bipolar disorder, unspecified; F41.0 Panic disorder [episodic paroxysmal anxiety]; R74.0 Nonspecific elevation of levels of transaminase and lactic acid dehydrogenase [LDH]; G89.4 Chronic pain syndrome; R03.0 Elevated blood-pressure reading, without diagnosis of hypertension; E80.6 Other disorders of bilirubin metabolism; Z68.34 Body mass index [BMI] 34.0-34.9, adult

== ENCOUNTER 2017-02-23 03:45 | Emergency (ER) | payer MEDICAID ==
[~2017-02-23] VITALS: Ht 165.1 cm; Wt 99.8 kg
[~2017-02-23 03:45] MED LIST changes: +ACET-3783 PO; +ACET-9494 PO; +ALPR2TAB1 PO; +DOCU-67 PO; -EFFEXOR-XR150 MG PO; -FOLATE1 MG PO; +FOLI1TAB19 PO; +METH500T18 PO; -MOTRIN400 MG PO; +ONDA4TAB PO; -PRENATAL VITAMI1 T10 PO; -TYLENOL650 MG RC; +VENL150C1 PO; -VITAMIN B12100 MC1 PO; -VITAMIN C500 M8 PO
[2017-02-23 03:50] VITALS: BP 114/72
--- NOTE | 2017-02-23 04:00 | NUR ---
TO ER BED 6
--- NOTE | 2017-02-23 04:06 | NUR ---
26Y/F PATIENT PRESENTS TO ED WITH C/O HEAD AND NECK PAIN X 1 DAY . PT STATES HEADPHONE DROPPED ON HER FEET, THEN HER HEAD AND NECK AND HER WHOLE BODY STARTED HURTING, NO FEVER, NO TRAUMA NOR INJURY . DENIES N/V/D; SKIN IS PINK/WARM/DRY; AAOX4 WITH EVEN AND STEADY GAIT; LUNGS CLEAR BL; HR EVEN AND REGULAR; PT DENIES ANY FEVER, CP, SOB, OR COUGH AT THIS TIME; PATIENT STATES PAIN OF 10/10 AT THIS TIME; VSS; PATIENT POSITIONED FOR COMFORT; HOB ELEVATED; BEDRAILS UP X2; BED DOWN. ER MD MADE AWARE OF PT STATUS.
--- NOTE | 2017-02-23 05:40 | NUR ---
PT APPEARS TO BE RESTING IN BED. NO SOB NOTED AT THIS TIME. WILL CONTINUE TO MONITOR.
[2017-02-23] MEDS ORDERED: KETOROLAC 60 MG/2 ML VIAL IM ONE (05:50)
[2017-02-23] MEDS ORDERED: cefTRIAXone 1,000 MG in LIDOCAINE 1% ED 2.1 ML IM ONE (05:50)
[2017-02-23 05:59] LABS: APPEARANCE,URINE CLEAR (CLEAR); BILIRUBIN,URINE NEGATIVE (NEGATIVE); BLOOD, URINE NEGATIVE (NEGATIVE); COLOR,URINE YELLOW (YELLOW); LEUKOCYTE ESTERASE ,URINE 2+ (NEGATIVE); NITRITE, URINE NEGATIVE (NEGATIVE); PROTEIN,URINE NEGATIVE (NEGATIVE); UGLUCOSE NEGATIVE (NEGATIVE); UROBILINOGEN,URINE 0.2 EU/dL (0.2 - 1)
[2017-02-23 06:03] LABS: AMPHETAMINE, URINE POS. ng/ml (NEG <=1000); BARBITURATE, URINE NEG. ng/ml (NEG <=200); BENZODIAZEPINE, URINE POS. ng/mL (NEG <=200); CANNABINOID, URINE NEG. ng/mL (NEG <=50); COCAINE, URINE NEG. ng/mL (NEG <=300); OPIATE, URINE NEG. ng/mL (NEG <=2000); PHENCYCLIDINE SCREEN,URINE NEG. ng/mL (NEG <=25)
[2017-02-23 06:10] LABS: BACTERIA,URINE None Seen /HPF (None Seen); RBC,URINE NONE SEEN /HPF (0-5)
[2017-02-23 06:45] VITALS: BP 108/73
--- NOTE | 2017-02-23 06:46 | NUR ---
Patient discharged with v/s stable. Written and verbal after care instructions given and explained. Patient alert, oriented and verbalized understanding of instructions. Ambulatory with steady gait. All questions addressed prior to discharge. ID band removed. Patient advised to follow up with PMD. Rx of MACROBID AND NAPROSYN given. Patient educated on indication of medication including possible reaction and side effects. Opportunity to ask questions provided and answered.
== END 2017-02-23 06:45 | disposition home or self-care (01) ==
LOC: MED 03:45
DX: R51 Headache (principal); M54.2 Cervicalgia
CPT/HCPCS: 80305; 81001; 87086; 96372; 99284; J0696; J1885; J2001

== ENCOUNTER 2017-04-01 15:52 | Emergency (ER) | payer MEDICAID ==
[~2017-04-01] VITALS: Ht 165.1 cm; Wt 100.9 kg
[2017-04-01 15:56] VITALS: BP 129/96
[2017-04-01 17:00] VITALS: BP 123/77
== END 2017-04-01 17:00 | disposition home or self-care (01) ==
LOC: MED 15:52
DX: Z76.0 Encounter for issue of repeat prescription (principal); Z79.899 Other long term (current) drug therapy
CPT/HCPCS: 99283

== ENCOUNTER 2017-05-14 21:50 | Emergency (ER) | payer MEDICAID ==
[~2017-05-14] VITALS: Ht 165.1 cm; Wt 110.7 kg
[~2017-05-14 21:50] MED LIST changes: -ACET-3783 PO; +ACET-5636 PO; +DOCU-299 PO; -DOCU-67 PO
[2017-05-14 22:12] VITALS: BP 135/77
[2017-05-14 23:48] VITALS: BP 135/77
== END 2017-05-14 23:45 | disposition home or self-care (01) ==
LOC: MED 21:50
DX: R30.0 Dysuria (principal); F41.9 Anxiety disorder, unspecified; F32.9 Major depressive disorder, single episode, unspecified; Z76.0 Encounter for issue of repeat prescription
CPT/HCPCS: 81002; 81025; 99283

== ENCOUNTER 2017-05-27 21:54 | Emergency (ER) | payer MEDICAID ==
[~2017-05-27] VITALS: Ht 165.1 cm; Wt 99.8 kg
[2017-05-27 21:57] VITALS: BP 124/74
--- NOTE | 2017-05-28 00:32 | NUR ---
PATIENT TO OF 1
[2017-05-28] MEDS ORDERED: KETOROLAC 60 MG/2 ML VIAL IM ONE (01:35)
[2017-05-28 02:05] VITALS: BP 133/86
--- NOTE | 2017-05-28 02:05 | NUR ---
Patient discharged with v/s stable. Written and verbal after care instructions given and explained. Patient alert, oriented and verbalized understanding of instructions. Ambulatory with steady gait. All questions addressed prior to discharge. ID band removed. Patient advised to follow up with PMD. Rx of [place] given. Patient educated on indication of medication including possible reaction and side effects. Opportunity to ask questions provided and answered.
== END 2017-05-28 02:05 | disposition home or self-care (01) ==
LOC: MED 21:54
DX: G89.29 Other chronic pain (principal)
CPT/HCPCS: 96372; 99283; J1885

== ENCOUNTER 2017-06-10 13:19 | Emergency (ER) | payer MEDICAID ==
[~2017-06-10] VITALS: Ht 172.7 cm; Wt 100.0 kg
[2017-06-10 13:27] VITALS: BP 150/76
--- NOTE | 2017-06-10 13:51 | NUR ---
PATIENT TO BED 9 AT THIS TIME.
--- NOTE | 2017-06-10 14:04 | NUR ---
27 F C/O GENERALIZED ANXIERTY X 2 DAYS; PT STATES SHE "RAN OUT" XANAX AND SHE BEEN EXPERIENCING ANXIOUS THOUGHTS; PT DENIES SI OR HI; PT ALSO C/O 02/28 "TINGLING" PAIN TO POSTERIOR NECK AND BACK; SKIN IS PINK/WARM/DRY; AOX4 WITH EVEN AND STEADY GAIT; RR ARE EVEN AND UNLABORED; VSS; PATIENT POSITIONED FOR COMFORT; HOB ELEVATED; BED DOWN. ER MD MADE AWARE OF PT STATUS. WILL CONTINUE TO MONITOR
[2017-06-10 15:15] VITALS: BP 103/42
--- NOTE | 2017-06-10 15:15 | NUR ---
Patient discharged with v/s stable. Written and verbal after care instructions given and explained. Patient alert, oriented and verbalized understanding of instructions. Patient is calm and cooperative. Ambulatory with steady gait. All questions addressed prior to discharge. ID band removed. Patient advised to follow up with PMD. Rx of Xanax given. Patient educated on indication of medication including possible reaction and side effects. Opportunity to ask questions provided and answered.
== END 2017-06-10 15:15 | disposition home or self-care (01) ==
LOC: MED 13:19
DX: F41.9 Anxiety disorder, unspecified (principal); Z76.0 Encounter for issue of repeat prescription; F31.9 Bipolar disorder, unspecified; Z79.899 Other long term (current) drug therapy
CPT/HCPCS: 81002; 81025; 99284

== ENCOUNTER 2017-07-12 22:08 | Emergency (ER) | payer MEDICAID ==
[~2017-07-12] VITALS: Ht 165.1 cm; Wt 99.8 kg
[2017-07-12 22:10] VITALS: BP 150/80
--- NOTE | 2017-07-12 23:11 | NUR ---
PT TAKEN TO BED 6
--- NOTE | 2017-07-12 23:15 | NUR ---
PATIENT IS A 27 Y/O FEMALE WHO PRESENTS TO THE ED S/P FALL. PT STATES, "I FELL AND I HAVE BEEN USING ALPRAZOLAM AND NORCO AND I AM RUNNING OUT." PT REPORTS 10/10 TINGLING BACK AND NECK PAIN THAT DOES NOT RADIATE. PT DENIES CP, SOB, N/V/D. PT AAOX4, RR EVEN/UNLABORED. PT REPOSITIONED FOR COMFORT, BED IN LOWEST POSITION. ER MD DR. RECINOS NOTIFIED. WILL CONTINUE TO MONITOR.
--- NOTE | 2017-07-12 23:18 | NUR ---
Dr. Dumont evaluating patient at bedside.
[2017-07-13] VITALS: BP 132/82
--- NOTE | 2017-07-13 | NUR ---
Patient discharged with v/s stable. Written and verbal after care instructions given and explained. Patient alert, oriented and verbalized understanding of instructions. Ambulatory with steady gait. All questions addressed prior to discharge. ID band removed. Patient advised to follow up with PMD. Rx of NORCO 10MG-325MG AND ATIVAN given. Patient educated on indication of medication including possible reaction and side effects. Opportunity to ask questions provided and answered.
== END 2017-07-13 | disposition home or self-care (01) ==
LOC: MED 22:08
DX: Z76.0 Encounter for issue of repeat prescription (principal); G89.29 Other chronic pain; M54.9 Dorsalgia, unspecified; F41.9 Anxiety disorder, unspecified; Z79.899 Other long term (current) drug therapy; Z90.49 Acquired absence of other specified parts of digestive tract
CPT/HCPCS: 99283

== ENCOUNTER 2017-08-06 01:41 | Emergency (ER) | payer MEDICAID ==
[~2017-08-06] VITALS: Ht 165.1 cm; Wt 99.8 kg
--- NOTE | 2017-08-06 01:41 | NUR ---
PT [facility] AND PLACED IN BED 10.
[2017-08-06 01:43] VITALS: BP 133/84
[2017-08-06] MEDS ORDERED: KETOROLAC 30 MG/ML VIAL IM ONE (01:50)
--- NOTE | 2017-08-06 02:10 | NUR ---
27Y/F PRESENTS TO ER C/O PAIN TO RT ANKLE S/P FALL. RT ANKLE IS SWOLLEN,SKIN INTACT, NO REDNESS NOTED, PAIN 10/10, SHARP. PT DENIES LOC, N/V/D, CP, SOB. PT AA&OX4, PT IN BED, ER MD AWARE OF PT STATUS.
[2017-08-06] MEDS ORDERED: KETOROLAC 60 MG/2 ML VIAL IM ONE (03:00)
--- NOTE | 2017-08-06 03:15 | NUR ---
Crutches dispensed. Taught proper use, patient returned demo very well.
[2017-08-06 03:20] VITALS: BP 133/84
--- NOTE | 2017-08-06 03:20 | NUR ---
Patient discharged with v/s stable. Written and verbal after care instructions given and explained. Patient alert, oriented and verbalized understanding of instructions. Ambulatory with steady gait W/ CRUTCHES. All questions addressed prior to discharge. ID band removed. Patient advised to follow up with PMD. Rx of NAPROSYN 500MG given. Patient educated on indication of medication including possible reaction and side effects. Opportunity to ask questions provided and answered.
== END 2017-08-06 03:20 | disposition home or self-care (01) ==
LOC: MED 01:41
DX: S93.401A Sprain of unspecified ligament of right ankle, initial encounter (principal); Z90.89 Acquired absence of other organs; X50.1XXA Overexertion from prolonged static or awkward postures, initial encounter; Y93.9 Activity, unspecified; Y92.89 Other specified places as the place of occurrence of the external cause; Y99.8 Other external cause status
CPT/HCPCS: 73610; 96372; 99284; J1885; Q0092

== ENCOUNTER 2017-09-08 22:47 | Emergency (ER) | payer MEDICAID ==
[~2017-09-08] VITALS: Ht 165.1 cm; Wt 105.9 kg
[2017-09-08 22:52] VITALS: BP 131/74
[2017-09-08] MEDS ORDERED: HYDROmorphone PFS 2 MG/ML SYR IM ONE (23:45)
[2017-09-09 00:55] VITALS: BP 130/71
== END 2017-09-09 00:30 | disposition home or self-care (01) ==
LOC: MED 22:47
DX: G89.29 Other chronic pain (principal); M54.5 Low back pain; R03.0 Elevated blood-pressure reading, without diagnosis of hypertension
CPT/HCPCS: 96372; 99283; J1170

== ENCOUNTER 2017-10-09 17:36 | Emergency (ER) | payer MEDICAID ==
[~2017-10-09] VITALS: Ht 165.1 cm; Wt 103.9 kg
[2017-10-09 17:53] VITALS: BP 119/71
--- NOTE | 2017-10-09 19:00 | NUR ---
27f bib with c/o 10/10 constant upper, mid, and right sided lower back pain x today. Pt denies any recent falls or injury. Pt is aox4 with steady gait. RR are even and unlabored. Skin warm/pink/dry. nad at this time. vss. awaiting er md baker. will continue to monitor.
--- NOTE | 2017-10-09 19:25 | NUR ---
Pt report given to [facility]. Transfer of care at this time.
--- NOTE | 2017-10-09 19:53 | NUR ---
Pt refused to sign d/c paperwork. ER MD DR. Joseph aware. VSS upon leaving ER. Pain decreased to 6/10
--- NOTE | 2017-10-09 19:54 | NUR ---
Patient discharged with v/s stable with pain decreased 6/10 according to Pt. Written and verbal after care instructions given and explained. Patient verbalized understanding. Ambulatory with steady gait. All questions addressed prior to discharge. Advised to follow up with PMD.
[2017-10-09 19:57] VITALS: BP 119/71
== END 2017-10-09 19:54 | disposition home or self-care (01) ==
LOC: MED 17:36
DX: G89.29 Other chronic pain (principal); M54.9 Dorsalgia, unspecified; Z72.89 Other problems related to lifestyle
CPT/HCPCS: 99283

== ENCOUNTER 2018-03-04 21:39 | Emergency (ER) | payer MEDICAID ==
[~2018-03-04] VITALS: Ht 165.1 cm; Wt 112.9 kg
[2018-03-04 21:47] VITALS: BP 102/65
[2018-03-04 21:50] VITALS: BP 102/65
== END 2018-03-04 23:00 | disposition left against medical advice (07) ==
LOC: MED 21:39
DX: F41.9 Anxiety disorder, unspecified (principal); F13.20 Sedative, hypnotic or anxiolytic dependence, uncomplicated; Z90.89 Acquired absence of other organs; Z79.899 Other long term (current) drug therapy
CPT/HCPCS: 99284